=== PATIENT | female | born 1985 | race Caucasian/White ===

== ENCOUNTER 2018-05-16 15:02 | Emergency (ER) | payer MEDICAID, SELFPAY ==
[2018-05-16] MEDS ORDERED: PANT40TA3 PO (15:27)
[2018-05-16 15:40] LABS: BASOPHILS # (AUTO) 0.02 x10^3/uL (0-0.1); BASOPHILS % (AUTO) 0 % (0-1); EOSINOPHILS # (AUTO) 0.01 x10^3/uL (0-0.4); EOSINOPHILS % (AUTO) 0 % (1-7); LYMPHOCYTES # (AUTO) 1.42 x10^3/uL (1-3.4); LYMPHOCYTES % (AUTO) 12 % (22-44); MD NO; MEAN CORPUSCULAR HEMOGLOBIN 31.7 pg (27.0-34.8); MEAN CORPUSCULAR HGB CONC 34.6 g/dL (32.4-35.8); MEAN CORPUSCULAR VOLUME 91.6 fL (80-100); MEAN PLATELET VOLUME 10.2 fL (7.4-10.4); MONOCYTES # (AUTO) 0.56 x10^3/uL (0.2-0.8); MONOCYTES % (AUTO) 5 % (2-9); NEUTROPHILS # (AUTO) 9.72 x10^3/uL (1.8-6.8); NEUTROPHILS % (AUTO) 83 % (42-75); PLATELET COUNT 228 x10^3/uL (130-400); RED BLOOD COUNT 5.16 x10^6/uL (3.82-5.3); RED CELL DISTRIBUTION WIDTH 12.4 % (9.6-15.2)
[2018-05-16 15:48] LABS: ALBUMIN 4.1 g/dL (3.4-5.0); ANION GAP 9 mmol/L (5-15); CALCIUM 9.6 mg/dL (8.5-10.1); CHLORIDE 99 mmol/L (98-107); CREATININE 0.76 mg/dL (0.55-1.02)
[2018-05-16] MEDS ORDERED: PLEASE ENTER WEIGHT MC SCH (16:00)
[2018-05-16] MEDS ORDERED: hydrOXYzine 25 MG/ML IM ONE (16:00)
[2018-05-16] MEDS ORDERED: D5%-LACTATED RINGERS 1,000 ML IV ONE (16:00)
[2018-05-16 18:07] LABS: CULTURE INDICATED? YES; MICROSCOPIC INDICATED
[2018-05-16 18:44] VITALS: BP 115/78
== END 2018-05-16 19:49 | disposition home or self-care (01) ==
LOC: ED 18:06
DX: O21.1 Hyperemesis gravidarum with metabolic disturbance (principal); Z3A.08 8 weeks gestation of pregnancy
CPT/HCPCS: 36415; 80048; 81001; 82040; 85025; 87086; 96365; 96366; 96372; 99285; J3410; J7121